=== PATIENT | female | born 1945 | race Caucasian/White ===

== ENCOUNTER 2020-04-23 09:59 | Outpatient (RCR) | payer MEDICARE, SELFPAY ==
[2014-01-11 18:40] VITALS: BMI 36.8
[2020-04-23] MEDS: COVID-19 VACC, MRNA(PFIZER)/PF 30 MCG/0.3 ML SYRINGE IM (18:56)
[2020-05-14] MEDS: COVID-19 VACC, MRNA(PFIZER)/PF 30 MCG/0.3 ML SYRINGE IM (18:26)
== END 2020-07-28 23:59 ==
LOC: IMMUN 09:59
PROVIDERS: PCP Internal Medicine; Visit Provider Family Medicine
DX: Z23 Encounter for immunization (principal)
CPT/HCPCS: 0001A; 0002A; 91300

== ENCOUNTER → 2021-12-30 | Outpatient (CLI) | payer MEDICARE, SELFPAY ==
--- NOTE | 2021-12-30 07:45 | MRI_ITS ---
HISTORY: PARTIAL L PALSY. TECHNIQUE: Multiplanar and multisequence MR images of the brain were obtained without contrast. 313 images. COMPARISON: None. FINDINGS: BRAIN PARENCHYMA: Mild foci of small zones of increased T2 FLAIR signal in the bilateral frontal white matter. No abnormal focus of restricted diffusion. No acute intracranial hemorrhage identified. CSF SPACES: Mild generalized volume loss. No significant midline shift or other mass effect.No extra-axial fluid collection. VASCULAR SYSTEM: Major intracranial flow voids are maintained. PARANASAL SINUSES AND MASTOID AIR CELLS: No significant air fluid levels. ORBITS: Symmetric contents. MRI/Brain without Contrast IMPRESSION: Mild chronic involutional and white matter changes. No evidence for acute infarct. Otherwise unremarkable noncontrast MRI. Electronically Signed: Abby Maradiaga MD at 13:40 EST ,
== END | disposition home or self-care (01) ==
PROVIDERS: PCP Internal Medicine; Visit Provider Ophthalmology
DX: H49.22 Sixth [abducent] nerve palsy, left eye (principal)
CPT/HCPCS: 70551